=== PATIENT | female | born 2000 | race Two or more races ===

== ENCOUNTER 2024-04-26 10:18 | Emergency (ER) | payer OTHER, MEDICAID, SELFPAY ==
[2024-04-26 10:20] VITALS: BMI 28.8
[2024-04-26 11:16] VITALS: BP 125/86; PULSE 67; RESP 19; TEMP 36.6; O2SAT 99; BMI 28.8
--- NOTE | 2024-04-26 11:35 | XR_ITS ---
Examination: Ultrasound soft tissue neck TECHNIQUE: Grayscale sonographic images soft tissue neck Exam date and time: April 26, 2024 1209 hours INDICATIONS: Anterior lateral neck redness swelling and pain and tenderness beginning 3 days ago FINDINGS: Multiple lower lateral soft tissue right neck lymph nodes, including 3.0 x 2.6 cm, 2.0 x 2.0 cm, 1.8 x 2.1 cm, 2.4 x 2.3 cm IMPRESSION: Abnormal cervical lymphadenopathy, consider correlation with CT soft tissue neck post intravenous contrast follow-up
--- NOTE | 2024-04-26 11:36 | PD.EDRME ---
Rapid Medical Screening Exam E Arrival date/time: 04/26/24 10:18 24-year-old female presents to the emergency department with complaints of acute right lateral neck swelling Reports has not been ill no fever, cough, shortness of breath, chest pain, chills. I have greeted and performed a focused initial assessment of this patient. Initial appropriate labs ordered at this time. A comprehensive ED assessment and evaluation of the patient and analysis of all test and completion of medical decision making process will be conducted by additional ED provider. Chief Complaint: General Adult/Misc Complain Time Seen by Provider: 04/26/24 11:17 Vital signs: Vital Signs Temperature 97.9 F 04/26/24 11:16 Pulse Rate 67 04/26/24 11:16 Respiratory Rate 19 04/26/24 11:16 Blood Pressure 125/86 H 04/26/24 11:16 Pulse Oximetry (%) 99 04/26/24 11:16 Oxygen Delivery Method Room Air 04/26/24 11:16
[2024-04-26 12:37] LABS: Basophils % (Auto) 1 % (0-2.5); Eosinophils # (Auto) 0.1 Thou/mm3 (0.0-0.5); Eosinophils % (Auto) 3 % (0-10); Hemoglobin 13.1 g/dL (12.0-16.0); Immature Granulocytes % (Auto) 0 % (0-0); Lymphocytes # (Auto) 1.4 Thou/mm3 (1.0-4.8); Lymphocytes % (Auto) 36 % (10-50); Mean Corpuscular HGB Conc 33.6 g/dl (31.0-37.0); Mean Corpuscular Volume 92 fL (80-100); Monocytes # (Auto) 0.5 Thou/mm3 (0.0-0.8); Monocytes % (Auto) 14 % (0-12); Neutrophils # (Auto) 1.7 Thou/mm3 (1.8-7.7); Neutrophils % (Auto) 46 % (37-80); Nucleated Red Blood Cell % 0 /100 WBC (0); Platelet Count 430 Thou/mm3 (140-440); RDW Standard Deviation 49.5 fL (36.4-46.3); Red Blood Count 4.22 Miln/mm3 (4.00-5.20); White Blood Count 3.8 Thou/mm3 (3.6-11.0)
[2024-04-26 12:53] LABS: HCG,Qualitative Serum Negative
[2024-04-26 12:59] LABS: Alanine Aminotransferase 43 U/L (10-49); Albumin, Serum 4.4 gm/dL (3.5-5.0); Albumin/Globulin Ratio 1.2 (1.2-2.2); Alkaline Phosphatase 50 U/L (46-116); Anion Gap 8 (7-16); Aspartate Amino Transferase 23 U/L (0-34); BUN/Creatinine Ratio 17 Ratio (12-20); Bilirubin,Total 0.4 mg/dL (0.3-1.2); Blood Urea Nitrogen 10 mg/dL (9-23); Calcium 8.9 mg/dL (8.3-10.6); Calcium (Corrected) 8.9 mg/dL (8.5-10.1); Carbon Dioxide 27.1 mMol/L (20.0-31.0); Chloride 103 mMol/L (98-107); Creatinine (Component) 0.6 mg/dL (0.6-1.3); Estimated Creatinine Clearance 149.7 mL/min (>60); Globulin 3.6 gm/dL (2.3-3.5); Glucose 86 mg/dL (74-106); Osmolality,Calculated 273 (275-295); Sodium 138 mMol/L (136-145); eGFR > 60 See Note
[2024-04-26 14:25] VITALS: BP 141/85; PULSE 90; RESP 18; TEMP 36.8; O2SAT 100
[2024-04-26 15:20] LABS: Mono Screen Negative (Negative)
--- NOTE | 2024-04-26 15:40 | EDNOTE_ITS ---
<Statement entered by Peggy Claros MD - 04/30/24 07:24> As co-signing physician, I was present and available for consult prn. I concur with the plan and care as documented by the midlevel provider. ED Neck Injury Pain RME/HPI General Chief Complaint: General Adult/Misc Complain Stated Complaint: RIGHT SIDE OF NECK SWELLING X2 DAYS Time Seen by Provider: 04/26/24 11:17 Arrival date/time: 04/26/24 10:18 RME / HPI RME / HPI Narrative: 24-year-old female presents to the emergency department with complaints of acute right lateral neck swelling, severity of symptoms moderate, has been ongoing for the last 2 days. Patient denies any fever. Denies any cough denies any other complaints. Patient told me that few days ago patient had dental procedure done. Related Data Allergies Allergy/AdvReac Type Severity Reaction Status Date / Time cyclobenzaprine Allergy Intermediate Hives Verified 04/26/24 10:20 Review of Systems Review of Systems Narrative Review of Systems: Review of system reviewed and within normal limits except mentioned in HPI ED Exam Narrative Physical exam: VITAL SIGNS: Reviewed. GENERAL APPEARANCE: Alert and interactive, follows commands, no acute distress, HEAD AND FACE: Non-traumatic. ENT: PERRL, pink conjunctivitis, eyelid no trauma, Mucous membrane moist. NECK: Supple, nontender, no nuchal rigidity. Lymphadenopathy noted on the right supraclavicular area, nontender CHEST: No tenderness, no crepitus, no paradoxical movement, no retractions. LUNGS: Clear, well ventilated, symmetric, no rales, no wheezing, no ronchi, no stridor, good breath sounds bilaterally. HEART: Regular rate, regular rhythm, no murmur, no gallops. RECTAL: Deferred. GENITAL: Deferred. EXTREMITIES: Nontender, full range of motion. SKIN: Color pink, dry, no rash, no lacerations, no abrasions, no contusions. LYMPHATICS: Deferred. Course Quality Measures none Orders Category Date Time Status US soft tissue head and neck Stat Exams 04/26/24 11:35 Completed CBC Stat Lab 04/26/24 11:46 Completed CMP [Comprehensive Metabolic Panel] Stat Lab 04/26/24 11:46 Completed HCG,Qualitative Serum Stat Lab 04/26/24 11:46 Completed [place] Screen Stat Lab 04/26/24 11:46 Completed Vital Signs Vital signs: Vital Signs Temperature 97.9 F 04/26/24 11:16 Pulse Rate 67 04/26/24 11:16 Respiratory Rate 19 04/26/24 11:16 Blood Pressure 125/86 H 04/26/24 11:16 Pulse Oximetry (%) 99 04/26/24 11:16 Oxygen Delivery Method Room Air 04/26/24 11:16 Neck Pain [facility] Narrative [facility] Narrative:: 24-year-old female presents to the emergency department with complaints of acute right lateral neck swelling, severity of symptoms moderate, has been ongoing for the last 2 days. Patient denies any fever. Denies any cough denies any other complaints. Patient told me that few days ago patient had dental procedure done. Patient's workup today including Monospot, all came back normal. Results discussed with the patient. Patient was advised to follow-up closely with PCP and for possible referral to specialist for worsening of symptoms. In 1 to 2 days. Patient data External records reviewed:: None Clinical information provided by:: patient Social determinants that could affect healthcare access:: none Patient has the following chronic illnesses:: None How is presenting disease/condition affected by chronic disease/condition?: no chronic disease Evaluation data The following diagnostics were reviewed and interpreted by me:: lab results Lab and/or radiology exams considered but not ordered:: None Interpretation Summary: See results in MDM Medications / Prescriptions Medications or Prescriptions considered but not ordered:: None Medication administrations:: None Consultations Consultation(s) initiated? (list below): No Diagnosis Neck Differential Diagnosis: other (Lymphadenopathy, reactive lymphadenopathy) Most likely diagnosis given after review of the tests above:: Reactive lymphadenopathy Admission Indicated Admission indicated?: not indicated Admission Request Was there a request for admission?: No Disposition Plan Disposition Plan: Discharge Discharge Attestation Discharge Attestation: The patient and all family members were given an opportunity to ask questions and understood the discharge instructions. Discharge instructions specifically effects, indications for sooner follow up or return to the emergency department, and the expected course of current diagnosis. Patient condition: Stable Discharge Plan Plan Patient Disposition: HOME (Self Care) Disposition Comment: stable Prescriptions/Referrals Referrals: Cesar Ziegler FNP [Primary Care Provider] - In 1 week Problem List Clinical Impression: Lymphadenopathy Patient/Caregiver Discharge Instructions Discharge Activity: activity as tolerated Education Materials: Lymphadenopathy Additional Instructions: Thank you for the opportunity for serving you today. You are stable for discharged . You are advised to: Follow-up with your PCP in 1 to 2 days for further monitoring and referral to specialist for worsening of symptoms Return to ED for worsening of symptoms Print Language: Belgian Stand Alone Forms: Venita Award Info., Patient Portal Info Letter SUSANNE/POPEYE Supervising Physician SUSANNE/POPEYE Supervising Physician: MD Hyacinth
--- NOTE | 2024-04-26 16:41 | PC.NURSE ---
nax1 [phone]
--- NOTE | 2024-04-26 16:50 | PC.NURSE ---
CALLED PATIENT IN THE LOBBY AND OUTSIDE, NO ANSWER RECEIVED.
--- NOTE | 2024-04-26 17:31 | PC.NURSE ---
CALLED PATIENT IN LOBBY AND OUTSIDE NO ANSWER RECEIVED FROM PATIENT.
--- NOTE | 2024-04-26 17:38 | PC.NURSE ---
PATIENT LEFT WITHOUT DISCHARGE PAPERWORK.
== END 2024-04-26 17:39 | disposition home or self-care (01) ==
PROVIDERS: Nurse Practitioner Primary Care; Emergency Provider Emergency Medicine; PCP Nurse Practitioner Family
DX: R59.0 Localized enlarged lymph nodes (principal)
CPT/HCPCS: 36415; 76536; 80053; 84703; 85025; 86308; 99284

== ENCOUNTER → 2024-05-21 | Outpatient (CLI) | payer OTHER, MEDICAID, SELFPAY ==
[2024-05-20 17:29] LABS: HCG Qualitative,Urine Negative
--- NOTE | 2024-05-21 15:00 | XR_ITS ---
Examination: CT chest with intravenous contrast CT chest without intravenous contrast 2-D reconstructions Date and time of exam:May 21, 2024 1546 hours INDICATIONS: Diagnosis acute lymphadenitis face head and neck, lymph nodes of the base of the neck 2 weeks CTDI:vol (mGy) 30 DLP: (mGycm) 1053.35 Technique: Multiple axial sections of the thorax have been obtained. 3 mm slice thickness, from the hemidiaphragms to above the apices of the lungs. Mediastinal and lung density settings have been obtained. Intravenous contrast administered 60 cc Isovue-370. Noncontrast images have also been obtained. 2-D sagittal coronal images obtained. Low dose protocols were performed. One or more of the following dose reduction techniques were used; automated exposure control, adjustment of the mA and/or KV according to patient size, use of iterative reconstruction technique. Findings: No thoracic aortic aneurysm dilatation Pulmonary artery segments are not enlarged Multiple right supraclavicular and right axillary lymph nodes as well as multiple lymph nodes in the right lower neck, the largest measures 23 mm, axial image 5 No paratracheal tracheobronchial or bronchopulmonary adenopathy 7 mm pulmonary nodule left upper lobe No pneumonia or pulmonary edema No visualized liver lesion No gallstones No pancreatic or adrenal mass No hydronephrosis IMPRESSION: Pathologic right cervical right supraclavicular and right axillary lymphadenopathy Recommend CT soft tissue neck post intravenous contrast follow-up
== END | disposition home or self-care (01) ==
PROVIDERS: PCP Family Medicine; Referring Provider Family Medicine; Visit Provider Family Medicine
DX: R59.0 Localized enlarged lymph nodes (principal); Z32.00 Encounter for pregnancy test, result unknown
CPT/HCPCS: 71270; 81025; A4649; Q9967

== ENCOUNTER 2024-06-10 08:30 | Outpatient (CLI) | payer OTHER, MEDICAID, SELFPAY ==
[2024-06-06 15:53] VITALS: BMI 30.2
[2024-06-07 11:43] LABS: Basophils % (Auto) 1 % (0-2.5); Eosinophils # (Auto) 0.2 Thou/mm3 (0.0-0.5); Eosinophils % (Auto) 3 % (0-10); Hematocrit 39.5 % (36.0-46.0); Hemoglobin 13.2 g/dL (12.0-16.0); Immature Granulocytes % (Auto) 0 % (0-0); Lymphocytes # (Auto) 1.4 Thou/mm3 (1.0-4.8); Lymphocytes % (Auto) 31 % (10-50); Mean Corpuscular HGB Conc 33.4 g/dl (31.0-37.0); Mean Corpuscular Hemoglobin 31.1 pg (25.0-35.0); Mean Corpuscular Volume 93 fL (80-100); Monocytes # (Auto) 0.5 Thou/mm3 (0.0-0.8); Monocytes % (Auto) 11 % (0-12); Neutrophils # (Auto) 2.5 Thou/mm3 (1.8-7.7); Neutrophils % (Auto) 54 % (37-80); Nucleated Red Blood Cell % 0 /100 WBC (0); Platelet Count 481 Thou/mm3 (140-440); RDW Standard Deviation 49.1 fL (36.4-46.3); Red Blood Count 4.24 Miln/mm3 (4.00-5.20); White Blood Count 4.5 Thou/mm3 (3.6-11.0)
[2024-06-07 11:47] LABS: HCG,Qualitative Serum Negative
[2024-06-07 11:50] LABS: Partial Thromboplastin Time 26.2 Seconds (22.0-36.0); Prothrombin Time 10.8 Seconds (9.0-12.2)
[2024-06-10] VITALS (10 sets, daily range): BP systolic 111–158; BP diastolic 60–108; PULSE 70–101; RESP 11–22; TEMP 36.9–37.1; O2SAT 92–100
--- NOTE | 2024-06-10 09:00 | XR_ITS ---
Examination: CT soft tissue neck, without intravenous contrast. 2-D coronal reconstructions. 2-D sagittal reconstructions. Date and time of exam :June 10, 2024 0848 hours INDICATIONS: Multiple cervical lymph nodes on ultrasound soft tissue neck April 26, 2024, preop cervical lymph node biopsy today. CTDI: vol (mGy):13.9 DLP: (mGycm):363 Technique: 1.25 mm axial sections of the neck of the obtained. Coronal and sagittal reconstructions have been obtained. Low dose protocols were performed. One or more of the following dose reduction techniques were used; automated exposure control, adjustment of the mA and/or KV according to patient size, use of iterative reconstruction technique. Findings: Bilateral carotid triangle lymph nodes noted, the largest on the right side 15 mm Subcentimeter posterior cervical and submental lymph nodes Symmetrical nasopharynx oropharynx The larynx appears normal Normal epiglottis IMPRESSION: Significant cervical lymphadenopathy
--- NOTE | 2024-06-10 09:30 | XR_ITS ---
Examination: CT-guided percutaneous biopsy right cervical lymph node CT soft tissue neck without intravenous contrast Date and time of procedure: July 11, 2024 1101 hours INDICATIONS: CT soft tissue neck June 10, 2024 significant right cervical lymphadenopathy Informed consent provided. A timeout was completed verifying correct patient, procedure, site and positioning. Technique: Axial 3 mm sections were obtained for localization of an enlarged cervical lymph node on the right Appropriate area is marked. The patient's site was prepped and draped in sterile fashion Maximal sterile barrier technique utilized, including hand hygiene Local anesthesia was obtained with 1% lidocaine. Low dose protocols were performed. One or more of the following dose reduction techniques were used; automated exposure control, adjustment of the mA and/or KV according to patient size, use of iterative reconstruction technique. Utilizing CT fluoroscopic guidance 3 core biopsies obtained of the enlarged cervical lymph node right neck Patient appears in stable condition during this procedure. At completion of the procedure, the patient is in satisfactory condition. Estimated blood loss 0 cc Complete pathology report to follow. Impression: Successful CT-guided percutaneous biopsy right cervical lymph node
[2024-06-10] MEDS: SODIUM CHLORIDE 0.9% 500 ML 500 ML 20 ML IV (11:08)
[2024-06-10] MEDS: fentaNYL CIT INJ 50 mCg/ML AMP 2ML 75 MCG IVP (11:18)
--- NOTE | 2024-06-10 11:34 | PC.NURSE ---
1134 patient is awake, alert, breathing unlabored, dressing to right neck dry with no bleeding, report given to Yash GARZA
== END 2024-06-10 12:20 | disposition home or self-care (01) ==
PROVIDERS: Radiology Diagnostic Radiology; PCP Family Medicine; Referring Provider Family Medicine; Visit Provider Family Medicine
DX: D36.0 Benign neoplasm of lymph nodes (principal); Z01.812 Encounter for preprocedural laboratory examination
CPT/HCPCS: 38505; 36415; 70490; 77012; 84703; 85025; 85610; 85730; J3010; J7040

== ENCOUNTER 2024-10-10 10:25 | Day surgery (SDC) | payer OTHER, MEDICAID, SELFPAY ==
[2024-10-09 10:46] VITALS: BMI 31.3
[2024-10-09 11:40] LABS: Basophils # (Auto) 0.1 Thou/mm3 (0.0-0.2); Basophils % (Auto) 1 % (0-2.5); Eosinophils # (Auto) 0.2 Thou/mm3 (0.0-0.5); Eosinophils % (Auto) 3 % (0-10); Hematocrit 38.2 % (36.0-46.0); Hemoglobin 13.2 g/dL (12.0-16.0); Immature Granulocytes Auto 0.01 Thou/mm3 (0.00-0.00); Lymphocytes # (Auto) 1.6 Thou/mm3 (1.0-4.8); Lymphocytes % (Auto) 27 % (10-50); Mean Corpuscular HGB Conc 34.6 g/dl (31.0-37.0); Mean Corpuscular Hemoglobin 31.4 pg (25.0-35.0); Mean Corpuscular Volume 91 fL (80-100); Monocytes # (Auto) 0.7 Thou/mm3 (0.0-0.8); Monocytes % (Auto) 11 % (0-12); Neutrophils # (Auto) 3.6 Thou/mm3 (1.8-7.7); Neutrophils % (Auto) 59 % (37-80); Nucleated Red Blood Cell # 0.00 Thou/mm3 (0.00-0.00); Nucleated Red Blood Cell % 0 /100 WBC (0); Platelet Count 479 Thou/mm3 (140-440); RDW Standard Deviation 48.7 fL (36.4-46.3); Red Blood Count 4.20 Miln/mm3 (4.00-5.20); White Blood Count 6.1 Thou/mm3 (3.6-11.0)
[2024-10-09 11:53] LABS: HCG,Qualitative Serum Negative
[2024-10-09 11:59] LABS: Anion Gap 8 (7-16); BUN/Creatinine Ratio 17 Ratio (12-20); Blood Urea Nitrogen 10 mg/dL (9-23); Calcium 9.8 mg/dL (8.3-10.6); Carbon Dioxide 25.9 mMol/L (20.0-31.0); Chloride 107 mMol/L (98-107); Creatinine (Component) 0.6 mg/dL (0.6-1.3); Estimated Creatinine Clearance 150.5 mL/min (>60); Glucose 92 mg/dL (74-106); Osmolality,Calculated 280 (275-295); Potassium 4.2 mMol/L (3.4-5.1); Sodium 141 mMol/L (136-145); eGFR > 60 See Note
[2024-10-10] VITALS (7 sets, daily range): BP systolic 91–128; BP diastolic 42–85; PULSE 51–82; RESP 15–20; TEMP 36.2–37.1; O2SAT 95–99
[2024-10-10] MEDS: RINGERS LACTATED 1000 ML 1,000 ML 20 ML IV (10:50)
--- NOTE | 2024-10-10 13:24 | PD.SUROPNT ---
Date of Procedure 10/10/24 Pre Op Diagnosis Enlarging right neck mass Post Op Diagnosis Enlarging right neck mass Procedure Excision of subfascial right neck mass Findings Enlarged lymph node in the anterior triangle of right neck Procedure Description Patient brought into the operating room in supine position. After administration of general tracheal anesthesia, patient's right neck prepped and draped in standard surgical manner. The neck was extended to the left. After administration of local anesthesia an approximately 3 cm incision was made in the crease of the neck and dissection was deepened soft tissue. Platysma was divided. External jugular vein was retracted medially. Patient was noted to have multiple enlarged lymph nodes that were circumferentially dissected out surrounding tissue and excised. The small lymphatic channels were ligated with application of clips. The wound was washed and irrigated. Hemostasis was adequate and satisfactory. Platysma reapproximated with interrupted sutures using 2-0 Vicryl. Subcutaneous tissue closed with interrupted sutures using 3-0 Vicryl and incision was closed with 4-0 Monocryl in subcuticular fashion. Dermabond and pressure dressings applied. Patient tolerated the procedure well. She was extubated, breathing spontaneously without difficulty and was transferred to postanesthesia care in stable condition. Instruments, needles and sponge counts were reported to be correct x 2. Anesthesia GETA and local Pathology / specimen Other (Right neck mass) Estimated Blood Loss 2 Condition Stable Disposition PACU Surgeon Kia Desai MD Surgical Staff Operation Date: 10/10/24 13:30 <No data on this case meets the specified criteria>
--- NOTE | 2024-10-10 13:32 | SUR.PHASEI ---
pt received from OR in recovery bay 5. pt obtunded, breathing unlabored on oxymask 8l, oral airway in place. v/s stable. pt dressing to right neck cdi. report received from Dr. Leon and Rick GARZA.
--- NOTE | 2024-10-10 13:57 | SUR.PHASEI ---
pt able to tolerate oral fluids without difficulty swallowing or nausea/vomiting.
--- NOTE | 2024-10-10 14:40 | SUR.PHASEII ---
pt awake and alert, breathing unlabored on room air. v/s stable. pt dressing to right neck cdi. pt able to ambulate to wheelchair with steady gait. d/c instructions given with mother Rosa Isela in room, all questions answered. pt d/c via wheelchair with all belongings.
== END 2024-10-10 14:40 | disposition home or self-care (01) ==
PROVIDERS: PCP Family Medicine; Referring Provider Surgery; Visit Provider Surgery
PROC: (CPT 21556; principal; 2024-10-10 13:15)
DX: R59.0 Localized enlarged lymph nodes (principal); Z90.81 Acquired absence of spleen
CPT/HCPCS: 21556; 36415; 80048; 84703; 85025; A4217; A4649; J0131; J0690; J1100; J1885; J2250; J2405; J2704; J3010; J3490; J7120